=== PATIENT | female | born 1950 | race Caucasian/White ===

== ENCOUNTER 2021-04-08 06:05 | Observation (INO) ==
[~2021-04-08 06:05] MED LIST: Buffered Lidocaine 1% SYRIN 1 ml INTRADERM ONE; Lactated Ringers 1000 ml BAG 1,000 ML IV SCH
[2021-04-08] MEDS ORDERED: ceFAZolin 2 GM PREMIX 2 GM/50 ML BAG ONE (06:17)
[2021-04-08] MEDS ORDERED: Bupivacaine 0.5% SDV PF 30ML VIAL ONE ×2 (06:58→07:07)
[2021-04-08] MEDS ORDERED: Midazolam 5 mg/5 ml VIAL 1 mg/ml 5 ml VIAL (5 mg) ONE (07:00)
[2021-04-08] MEDS ORDERED: Dexamethasone IV 4 MG/ML VIAL 1 ml VIAL ONE (07:00)
[2021-04-08] MEDS ORDERED: fentaNYL 100 mcg/2 ml 50 MCG/ML VIAL ONE ×2 (07:00→07:13)
[2021-04-08] MEDS ORDERED: hydrALAZINE 20 mg/ml 1 ML Vial IV ONE (07:03)
[2021-04-08] MEDS ORDERED: Rocuronium 50 mg VIAL 10 mg/ml 5 ml VIAL (50 mg) ONE (07:12)
[2021-04-08] MEDS ORDERED: Midazolam 2 mg/2 ml VIAL 1 mg/ml 2 ml VIAL (2 mg) ONE (07:13)
[2021-04-08] MEDS ORDERED: Propofol 10 MG/ML 20 ML BTL ONE (07:13)
[2021-04-08] MEDS ORDERED: Lidocaine 2% PF 5 ML VIAL ONE (07:13)
[2021-04-08] MEDS ORDERED: Lidocaine 1% MPF 5 ML VIAL ONE (07:16)
[2021-04-08] MEDS ORDERED: hydrALAZINE 20 mg/ml 1 ML Vial IV IV SLOW PU PRN (07:30)
[2021-04-08] MEDS ORDERED: Ondansetron 4 mg VIAL 2 MG/ML 2 ml VIAL ONE (09:06)
[2021-04-08] MEDS ORDERED: EPHEDrine (Pressors) 50 MG/ML VIAL ONE (09:06)
[2021-04-08] MEDS ORDERED: Vancomycin 1,000 MG VIAL ONE (09:18)
[2021-04-08] MEDS ORDERED: Acetaminophen IV 1 GM/100ML 100 ML IV ONE (09:28)
[2021-04-08] MEDS ORDERED: Naloxone 0.4 mg VIAL 0.4 mg/ml 1 ml VIAL IV PRN (10:27)
[2021-04-08] MEDS ORDERED: Lactulose 30 ml UDC PO PRN (10:31)
[2021-04-08] MEDS ORDERED: Ondansetron ODT 4 mg TAB 4 MG TAB PO PRN (10:31)
[2021-04-08] MEDS ORDERED: oxyCODONE/Acetamin 5/325 mg TAB PO PRN (10:31)
[2021-04-08] MEDS ORDERED: Morphine 2 MG/ML SYRINGE IV PRN (10:31)
[2021-04-08] MEDS ORDERED: diPHENhydraMINE 25 mg TAB PO PRN (10:31)
[2021-04-08] MEDS ORDERED: diPHENhydraMINE IV 50 MG/ML 1 ml VIAL (BENADRYL) IV PRN (10:31)
[2021-04-08] MEDS ORDERED: Magnesium Hydroxide LIQ 30 ML UDC PO PRN (10:31)
[2021-04-08] MEDS ORDERED: Ondansetron 4 mg VIAL 2 MG/ML 2 ml VIAL IV PRN (10:31)
[2021-04-08] MEDS: D5W 1/2 NS 1000 ml BAG 1,000 ML IV SCH ×2 (12:00→23:10)
[2021-04-08] MEDS: ceFAZolin 1 GM ADVAN 1 GM in NS 0.9% 50 ML 50 ML IVPB SCH ×2 (16:47→23:45)
[2021-04-08] MEDS: Magnesium Hydroxide LIQ 30 ML UDC PO SCH (21:46)
[2021-04-09 06:42] LABS: Hematocrit 34 % (35-47); Hemoglobin 11.6 g/dL (12.0-16.0); Platelet Count 198 10^3/uL (150-450)
[2021-04-09 07:05] LABS: Calcium 8.6 mg/dL (8.6-10.3); EGFR African American 119.2 (>60); EGFR Non-African American 98.5 (>60); Potassium 3.3 mmol/L (3.5-5.0)
[2021-04-09] MEDS: ceFAZolin 1 GM ADVAN 1 GM in NS 0.9% 50 ML 50 ML IVPB SCH (07:28)
[2021-04-09] MEDS: Magnesium Hydroxide LIQ 30 ML UDC PO SCH (07:33)
[2021-04-09] MEDS ORDERED: Potassium Chloride LIQUID 20 MEQ/15 ML LIQUID PO ONE (08:06)
[2021-04-09] MEDS ORDERED: KCL 20 MEQ/100 ML IVPREMIX 20 MEQ/100 ML BAG IV SCH (09:00)
[2021-04-09] MEDS ORDERED: Vitamin THERAPEUTIC TAB PO SCH (09:00)
[2021-04-09 11:26] VITALS: BP 148/58
== END 2021-04-09 13:30 | disposition home or self-care (01) ==
LOC: SSU 06:05 → OR 06:05
PROVIDERS: ADMIT Orthopaedic Surgery; ATTEND Orthopaedic Surgery